=== PATIENT | female | born 1925 ===

== ENCOUNTER 2016-06-10 14:45 | Emergency (ER) | payer OTHER ==
--- NOTE | 2016-06-10 15:01 | PROVIDER DOCUMENTATION ---
HPI-Syncope/Dizziness - General Source: patient - History of Present Illness-Syncope/Dizzy Prior Episodes: reports: no prior history Onset/Duration: reports: just prior to arrival Timing: reports: gone now Position/Activity at time of episode: reports: standing Symptoms prior to episode: reports: lightheaded Context: reports: almost passed out Loss of Consciousness: no loss of consciousness Recently Seen Here or By Another Healthcare Provider: No <Noah Thomas - Last Filed: 06/10/16 16:45> <Jose Donovan - Last Filed: 06/10/16 16:51> - General Chief Complaint: Near Syncope Stated Complaint: NEAR SYNCOPE TODAY Time Seen by Provider: 06/10/16 14:50 Allergies/Adverse Reactions: Patient Allergies Allergy/AdvReac Type Severity Reaction Status Date / Time aspirin AdvReac Unknown Verified 02/01/14 14:19 Home Medications: Home Medication List Medication Instructions Recorded Confirmed Last Taken Type Brinzolamide/Brimonidine Tart 1 drop BOTH EYES DIRECTED 02/01/14 02/01/14 Unknown History [Simbrinza 1%-0.2% Eye Drops] Carbidopa/Levodopa [Sinemet 25/100] 1 tab 4XDAY 02/01/14 02/01/14 Unknown History PRAVAstatin [Pravachol] 40 mg PO DAILY 02/01/14 02/01/14 01/31/14 History Rasagiline Mesylate [Azilect] 0.5 mg DAILY 02/01/14 02/01/14 Unknown History Rivaroxaban [Xarelto] 20 mg PO DAILY 02/01/14 02/01/14 Unknown History Carvedilol [Coreg] 3.125 mg PO BID #0 tablet 02/05/14 Unknown Rx - History of Present Illness-Syncope/Dizzy Nature of Presenting Problem: 89 YOF WITH A HX OF PARKINSONS PRESENTS TO WITH CC OF NEAR SYNCOPE. PT REPORTS SHE HAD SIT AT THE KITCHEN TABLE FOR ABOUT 15 MINUTES WHILE EATING SOUP TRIED TO GET UP AND HIT THE FLOOR. DENIES LOC,BLURRY VISION,NAUSEA. REPORTS POSSIBLE DROP IN BLOOD PRESSURE. STATES LANDED ON RIGHT SIDE AND HIP ALSO HIT HEAD ON CHURN. (Noah Thomas) Review of Systems - Adult - REVIEW OF SYSTEMS - ADULT Constitutional: denies: chills, fever, fatique Eyes: reports: no symptoms reported Ears, Nose, Mouth & Throat: denies: ear pain, sinus problem, throat pain Cardiovascular: reports: see HPI. denies: heart murmur, orthopnea, syncope Respiratory: denies: cough, shortness of breath, wheezing Gastrointestinal: denies: abdominal pain, difficulty swallowing, frequent heartburn, nausea Genitourinary: reports: no symptoms reported Musculoskeletal: reports: no symptoms reported Integumentary: reports: no symptoms reported Neurological: reports: see HPI. denies: ataxia, dizziness/vertigo, headache/ migraines Psychiatric: reports: no symptoms reported Endocrine: reports: no symptoms reported Hematologic/Lymphatic: reports: no symptoms reported Allergic/Immunologic: reports: no symptoms reported All Other Systems: Reviewed and Negative <Noah Thomas - Last Filed: 06/10/16 16:45> Past History - Adult - PAST MEDICAL HISTORY-ADULT Review of Records: reports: Nursing Assessment Review Major Childhood Illnesses: reports: denies history Cardiovascular: reports: denies history Neurological: reports: Parkinson's - PRIOR SURGERIES/PROCEDURES Surgical/Procedure History: reports: reviewed, not pertinent - IMMUNIZATION STATUS Childhood Immunizations: See Nurse Assessment Flu Vaccine: See Nurse Assessment - FAMILY HISTORY Family History: reviewed, not pertinent - SOCIAL HISTORY Smoking: denies Substance Use: none/never <Noah Thomas - Last Filed: 06/10/16 16:45> Physical Exam-General - PHYSICAL EXAM-ADULT Initial Vital Signs Reviewed: Yes - CONSTITUTIONAL General Appearance: appears well, alert, no apparent distress - EYES Eyes: PERRL/EOMI - HEAD, EARS, NOSE, MOUTH & THROAT HENMT: normocephalic/atraumatic, moist mucous membranes, normal ENT inspection, TMs normal, pharynx normal - NECK Neck: non-tender, full range of motion, supple, normal inspection - RESPIRATORY Respiratory: chest non-tender, lungs clear, normal breath sounds, no pleuratic chest pain, no respiratory distress, no accessory muscle use - CARDIOVASCULAR Cardiovascular: regular rate, rhythm, no edema, no gallop, no JVD, no murmur - GASTROINTESTINAL (ABDOMEN) Abdominal Exam: non tender, soft, no organomegaly, no pulsatile mass - MUSCULOSKELETAL Back Exam: normal inspection, no CVA tenderness, no vertebral tenderness Extremity: normal range of motion, non-tender, normal gait, normal inspection, no pedal edema, no calf tenderness, normal capillary refill, pelvis stable Peripheral Pulses: dorsalis-pedis (R): 2+, dorsalis-pedis (L): 2+ - SKIN Integumentary: normal color, normal turgor, warm/dry, abrasion(s) (TO POSTERIOR RIGHT ELBOW 2CM) - NEUROLOGIC Neurologic: grossly normal, no motor/sensory deficits - PSYCHIATRIC Psych/Mental Status: normal mood/affect, normal thought content, normal thought process, oriented x 3 <Noah Thomas - Last Filed: 06/10/16 16:45> Progress - XRAY 1 XRAY: Right XRAY Study: Shoulder Impression: Normal XRAY Interpretation: NO FX - CT/MRI 1 CT Study: Head Impression: Abnormal (no blood no mass no hemm; mild chronic ischemic changes) 2 CT Study: Pelvis Impression: Normal CT Results: no fracture ([place]) <Noah Thomas - Last Filed: 06/10/16 16:45> <Jose Donovan - Last Filed: 06/10/16 16:51> - PLAN OF CARE/RESULTS Progress/Plan/Lab Results: Vital Signs - 24 hr 06/10/16 14:46 Temperature 97.1 F L Pulse Rate 68 Respiratory 18 Rate Blood Pressure 115/62 O2 Sat by Pulse 97 Oximetry Orders Category Date Time Status HEAD W/O CONTRAST [CT] Stat Exams 06/10/16 15:21 Taken CBC WITH ELECTRONIC DIFF [HEME] Stat Lab 06/10/16 15:25 Completed CMP [COMPREHENSIVE METABOLIC PANEL] [CHEM] Stat Lab 06/10/16 15:25 Received Ddimer [D-DIMER PL] [COAG] Stat Lab 06/10/16 15:25 Completed UA NIMS W/REFLEX CULT PL [URINALYSIS] Stat Lab 06/10/16 15:17 Uncollected EKG [EKG] Stat Ther 06/10/16 15:16 Ordered Orders Category Date Time Status HEAD W/O CONTRAST [CT] Stat Exams 06/10/16 15:21 Draft PELVIS W/O CONTRAST [CT] Stat Exams 06/10/16 16:13 Ordered SHOULDER-RIGHT [RAD] Stat Exams 06/10/16 16:02 Ordered CBC WITH ELECTRONIC DIFF [HEME] Stat Lab 06/10/16 15:25 Completed CMP [COMPREHENSIVE METABOLIC PANEL] [CHEM] Stat Lab 06/10/16 15:25 Completed Ddimer [D-DIMER PL] [COAG] Stat Lab 06/10/16 15:25 Completed UA NIMS W/REFLEX CULT PL [URINALYSIS] Stat Lab 06/10/16 15:50 Results EKG [EKG] Stat Ther 06/10/16 15:16 Ordered Pt daughter came to senior front end engineer asking why werent we going to do right hip xray due to the fact that is where pt fell on pt daughter was told due to the physical findings on the exam where pt was able to rotate bilateral legs inward and outward that MD didn't seem it neccessary. However per pt family request pt is getting a CT of the right hip as well. Laboratory Tests 06/10/16 06/10/16 06/10/16 15:25 15:25 15:25 WBC 7.66 RBC 3.46 L Hgb 9.9 L Hct 30.8 L MCV 89.0 MCH 28.6 MCHC 32.1 L RDW Std Deviation 13.4 Plt Count 214 MPV 11.0 H Immature Gran % (Auto) 0.1 Neut % (Auto) 80.7 H Lymph % (Auto) 9.8 L [place] % (Auto) 6.9 Eos % (Auto) 2.1 Baso % (Auto) 0.4 Immature Gran # (Auto) 0.01 Neut # (Auto) 6.18 Lymph # (Auto) 0.75 L [place] # (Auto) 0.53 Eos # (Auto) 0.16 Baso # (Auto) 0.03 D-Dimer 0.50 Sodium 138 Potassium 4.5 Chloride 106 Carbon Dioxide 23 L Anion Gap 9 BUN 23 H Creatinine 1.1 H Estimated GFR/1.73 m2 47 BUN/Creatinine Ratio 21 Glucose 102 Calculated Osmolality 280 Calcium 8.8 Total Bilirubin 0.50 AST 10 ALT < 5 L Alkaline Phosphatase 53 Total Protein 6.0 L Albumin 3.8 Globulin 2.0 Albumin/Globulin Ratio 2.0 Urine Source Urine Color Urine Clarity Urine pH Ur Specific Lyle Urine Protein Urine Ketones Urine Blood Urine Nitrite Urine Bilirubin Urine Urobilinogen Urine Microscopic RBC Urine WBC Ur Epithelial Cells Urine Crystals Urine Bacteria Urine Casts Urine Yeast Urine Glucose 06/10/16 15:50 WBC RBC Hgb Hct MCV MCH MCHC RDW Std Deviation Plt Count MPV Immature Gran % (Auto) Neut % (Auto) Lymph % (Auto) [place] % (Auto) Eos % (Auto) Baso % (Auto) Immature Gran # (Auto) Neut # (Auto) Lymph # (Auto) [place] # (Auto) Eos # (Auto) Baso # (Auto) D-Dimer Sodium Potassium Chloride Carbon Dioxide Anion Gap BUN Creatinine Estimated GFR/1.73 m2 BUN/Creatinine Ratio Glucose Calculated Osmolality Calcium Total Bilirubin AST ALT Alkaline Phosphatase Total Protein Albumin Globulin Albumin/Globulin Ratio Urine Source CATH Urine Color YELLOW Urine Clarity CLEAR Urine pH 7.0 Ur Specific Lyle 1.010 Urine Protein NEGATIVE Urine Ketones TRACE Urine Blood NEGATIVE Urine Nitrite NEGATIVE Urine Bilirubin NEGATIVE Urine Urobilinogen NORMAL Urine Microscopic RBC Not Reportable Urine WBC NEGATIVE Ur Epithelial Cells <10 Urine Crystals NONE SEEN Urine Bacteria NEGATIVE Urine Casts NONE SEEN Urine Yeast NONE SEEN Urine Glucose NEGATIVE (Noah Thomas) Departure - Departure Time of Disposition Order: 16:46 Certified Medical Emergency: Emergent <Noah Thomas - Last Filed: 06/10/16 16:45> - Departure Time of Disposition Order: 16:50 Certified Medical Emergency: Emergent <Jose Donovan - Last Filed: 06/10/16 16:51> - Departure DIAGNOSIS: Near syncope Disposition: HOME 01 Condition: Stable Additional Instructions: keep diary of BP's to share with her doctor ED Follow Up Instructions: You have been treated by a care provider in the Emergency Department. These instructions are being provided to you so you can have an understanding of how to care for yourself upon discharge. Upon discharge from the Emergency Department, you are responsible for making arrangements for follow-up care by a physician of your choice. Take all prescribed medications as directed. Return to the Emergency Department immediately for any new or worsening symptoms. You may call the Physician Referral phone number at [phone] to obtain a list of Physicians who are taking new patients. Referrals: Lissett Flores MD [Primary Care Provider] - Attestation - Scribe Verification/Attestation Scribe:: Noah Thomas Acting as Scribe for:: Jose Donovan Scribe documention review:: This chart was documented by a scribe and accurately reflects the service the provider performed and the decisions made by the provider. <Noah Thomas - Last Filed: 06/10/16 16:45> Physician Attestation
[2016-06-10 15:35] LABS: MANUAL DIFF NEEDED? NO
[2016-06-10 15:41] LABS: BASO% 0.4 % (0.0-0.8); EOS# 0.16 X1000 (0.0-0.7); EOS% 2.1 % (0.0-10.0); HEMATOCRIT 30.8 % (37.0-47.0); HEMOGLOBIN 9.9 g/dL (12.0-16.0); IMM GRAN# 0.01 X1000 (0.0-0.04); IMM GRAN% 0.1 % (0.0-0.5); LYMPH# 0.75 X1000 (1.2-3.4); LYMPH% 9.8 % (20.5-51.1); MCH 28.6 PG (27-31); MCHC 32.1 g/dL (33-37); MONO# 0.53 X1000 (0.11-0.59); MONO% 6.9 % (1.7-9.3); NEUT% 80.7 % (42.2-75.2); PLT 214 X1000 (130-400); RBC 3.46 XMIL (4.2-5.4)
[2016-06-10 16:00] LABS: URINE CULTURE PL NEEDED? NO
[2016-06-10 16:01] LABS: AGAP 9; ALBUMIN 3.8 g/dL (3.5-5.0); ALKALINE PHOSPHATASE 53 U/L (32-104); BUN 23 mg/dL (8-22); CALCIUM 8.8 mg/dL (8.8-10.2); CHLORIDE 106 mmol/L (98-107); COSMO 280; GOT 10 U/L (10-30); GPT < 5 U/L (10-36); POTASSIUM 4.5 mmol/L (3.5-5.1); SODIUM 138 mmol/L (136-145); TCO2 23 mmol/L (25-35)
[2016-06-10 16:09] LABS: BILIRUBIN URINE NEGATIVE (NEGATIVE); BLOOD URINE NEGATIVE (NEGATIVE); CLARITY CLEAR (CLEAR); COLOR YELLOW; GLUCOSE URINE NEGATIVE (NEGATIVE); LEUKOCYTES URINE NEGATIVE (NEGATIVE); NITRITE URINE NEGATIVE (NEGATIVE); PROTEIN URINE NEGATIVE (NEGATIVE); UROBILINOGEN URINE NORMAL
--- NOTE | 2016-06-10 16:10 | Diag Imaging Result Document ---
PROCEDURE NAME: HEAD W/O CONTRAST - 06/10/2016 CT BRAIN WITHOUT CONTRAST. DOSE REDUCTION PROTOCOL. COMPARISON: 02/01/2014. FINDINGS: No parenchymal hemorrhage. No epidural or subdural hematoma. No subarachnoid hemorrhage. There is mild atrophy with mild microvascular ischemic changes. No mass identified on this noncontrasted exam. No hydrocephalus. No sinus opacification. IMPRESSION: 1. No hemorrhage. 2. Mild atrophy with mild microvascular ischemic changes. A preliminary report was given at 3:49 p.m..
[2016-06-10 16:44] LABS: URINE CAST NONE SEEN /LPF; URINE CRYSTAL NONE SEEN /HPF; URINE EPITHELIAL CELLS <10 /HPF (<10); URINE SOURCE CATH
[2016-06-10 17:25] VITALS: BP 159/095
--- NOTE | 2016-06-10 17:30 | Diag Imaging Result Document ---
PROCEDURE NAME: SHOULDER-RIGHT - 06/10/2016 RIGHT SHOULDER, THREE VIEWS: FINDINGS: No separation at the acromioclavicular joint. No fracture. The shoulder is high riding likely due to a chronic rotator cuff tear. IMPRESSION: No acute bony injury.
--- NOTE | 2016-06-10 17:30 | Diag Imaging Result Document ---
PROCEDURE NAME: PELVIS W/O CONTRAST - 06/10/2016 CT PELVIS WITHOUT CONTRAST: FINDINGS: Neither hip is dislocated. No fracture to either hip. No separation to the pubic symphysis. The sacroiliac joints are symmetrical. No fracture to the pelvis. IMPRESSION: No acute bony injury. A preliminary report was given at 4:33 p.m..
== END 2016-06-10 17:24 | disposition home or self-care (01) ==
LOC: P.ED 14:45
DX: R55 Syncope and collapse (principal); R42 Dizziness and giddiness; S50.311A Abrasion of right elbow, initial encounter; G20 Parkinson's disease; Z79.01 Long term (current) use of anticoagulants; Z79.899 Other long term (current) drug therapy; W18.30XA Fall on same level, unspecified, initial encounter; W22.8XXA Striking against or struck by other objects, initial encounter
CPT/HCPCS: 36415; 70450; 72192; 80053; 81001; 85025; 85379; 93005